=== PATIENT | female | born 1930 | race Caucasian/White ===

== ENCOUNTER 2017-01-23 11:59 | Inpatient (IN) | payer MEDICARE ==
[~2017-01-23] VITALS: Ht 165.1 cm; Wt 102.6 kg
[~2017-01-23 11:59] MED LIST: EPINEPHrine 0.1 MG/ML SYG ONE
[2017-01-23 12:10] VITALS: Ht 165.1 cm; Wt 102.6 kg
[2017-01-23] MEDS ORDERED: SOD CHLORIDE 0.9% 500 ML IV STA (12:19)
[2017-01-23] MEDS ORDERED: CEPH250C PO (12:28)
[2017-01-23] MEDS ORDERED: CITA20TA6 PO (12:29)
[2017-01-23] MEDS ORDERED: MELO7.5O PO (12:29)
[2017-01-23] MEDS ORDERED: DOCU250C58 PO (12:29)
[2017-01-23] MEDS ORDERED: HYDR-3670 PO (12:30)
[2017-01-23] MEDS ORDERED: RISP0.5T21 PO (12:31)
[2017-01-23] MEDS ORDERED: OXYB5TAB22 PO (12:32)
[2017-01-23] MEDS ORDERED: CLON-379 PO (12:33)
[2017-01-23] MEDS ORDERED: BENZ200C43 PO (12:33)
[2017-01-23] MEDS ORDERED: LORA0.5T PO (12:33)
[2017-01-23] MEDS ORDERED: ACET-2047 PO (12:34)
[2017-01-23] MEDS ORDERED: MUPI15CR9 TOP (12:35)
[2017-01-23] MEDS ORDERED: CIPR500T4 PO (12:35)
[2017-01-23 12:38] LABS: ADD SCAN DIFF NO
[2017-01-23 12:43] LABS: BASOPHILS % 0.4 % (0.0-2.0); EOSINOPHILS # 0.1 10^3/ul (0.0-0.5); EOSINOPHILS % 2.5 % (0.0-7.0); HEMATOCRIT 29.4 % (37.0-47.0); HEMOGLOBIN 9.2 g/dl (12.0-16.0); LYMPHOCYTES # 0.7 10^3/ul (0.8-2.9); LYMPHOCYTES % 24.6 % (15.0-51.0); MEAN CORPUSCULAR HEMOGLOBIN 26.4 pg (29.0-33.0); MEAN CORPUSCULAR HGB CONC 31.3 g/dl (32.0-37.0); MEAN CORPUSCULAR VOLUME 84.5 fl (82.0-101.0); MEAN PLATELET VOLUME 9.5 fl (7.4-10.4); MONOCYTE # 0.2 10^3/ul (0.3-0.9); MONOCYTES % 6.8 % (0.0-11.0); NEUTROPHIL # 1.8 10^3/ul (1.6-7.5); NEUTROPHILS % 65.3 % (39.0-77.0); PLATELET COUNT 123 10^3/UL (140-415); RED BLOOD COUNT 3.48 10^6/ul (4.20-5.40); RED CELL DISTRIBUTION WIDTH 14.5 % (11.5-14.5); WHITE BLOOD COUNT 2.8 10^3/ul (4.8-10.8)
[2017-01-23 12:50] LABS: ALBUMIN 3.4 g/dl (3.3-4.9); CHLORIDE 109 mmol/L (97-110)
[2017-01-23 12:51] LABS: POTASSIUM 4.7 mmol/L (3.5-5.1); SODIUM 145 mmol/L (135-144)
[2017-01-23 12:52] LABS: INR 1.04; PROTIME 13.6 Sec (12.2-14.2); PT RATIO 1.1
[2017-01-23 12:53] LABS: ALANINE AMINOTRANSFERASE 75 IU/L (13-69); ALBUMIN/GLOBULIN RATIO 1.21; ALKALINE PHOSPHATASE 103 IU/L (42-121); ANION GAP 15 (8-16); ASPARTATE AMINO TRANSFERASE 73 IU/L (15-46); BLOOD UREA NITROGEN 41 mg/dl (7-20); CARBON DIOXIDE 26 mmol/L (21-31); CREATININE 1.23 mg/dl (0.44-1.00); PARTIAL THROMBOPLASTIN TIME 38.8 Sec (25.0-35.0); TOTAL PROTEIN 6.2 g/dl (6.1-8.1)
[2017-01-23 12:54] LABS: CALCIUM 9.3 mg/dl (8.4-10.2); GLUCOSE 86 mg/dl (70-220)
[2017-01-23 13:13] LABS: TROPONIN-I < 0.012 ng/ml (0.00-0.12)
--- NOTE | 2017-01-23 13:20 | RADRPT ---
PROCEDURE: Chest 1 views. CLINICAL INDICATION: Shortness of breath TECHNIQUE: AP views of the chest were obtained. COMPARISON: None. FINDINGS: The heart is large. Right basilar infiltrates combined small pleural effusion are observed. Atelect asis is seen at the left lung base the osseous structures are osteopenic. Severe degenerative abreu ges are identified in the shoulders. Deformity of the right humeral head may be the sequelae of old trauma. Subtle calcifications are seen over the left axilla. IMPRESSION: Cardiomegaly . Right basilar infiltrates combined with small pleural effusion. Atelectasis at the left lung base. Subtle calcifications of the left axilla that may reflect material external to the patient or focal soft tissue calcifications. If further characterization is needed CT should be considered. RPTAT: AA .Rangel Titus MD, MD Date Time Electronically viewed and signed by .Rangel Titus MD, MD on 01/23/2017 13:20 .P/
[2017-01-23 14:14] LABS: ADD UMIC NO; URINE BILIRUBIN (Dip) NEGATIVE (NEGATIVE); URINE BLOOD (Dip) NEGATIVE (NEGATIVE); URINE COLOR LT. YELLOW (YELLOW); URINE GLUCOSE (Dip) NEGATIVE (NEGATIVE); URINE KETONES (Dip) NEGATIVE (NEGATIVE); URINE LEUKOCYTE ESTERASE (Dip) NEGATIVE (NEGATIVE); URINE NITRITE (Dip) NEGATIVE (NEGATIVE); URINE TOTAL PROTEIN (Dip) NEGATIVE (NEGATIVE); URINE UROBILINOGEN (Dip) 0.2 E.U./dL (0.1-1.0)
--- NOTE | 2017-01-23 15:09 | ERA ---
ER Documentation Chief Complaint Date/Time DATE: 01/23/17 TIME: 15:07 Chief Complaint BROUGHT IN VIA EMS DUE TO ALOC HPI Patient is an 86-year-old female brought from home due to being found with altered mental status by caregiver approximately 1 hour prior to arrival. Paramedics state that they do not know the last known well time. States that the patient was not verbal on transport to the ER. Appeared slightly tremulous. No fevers, no vomiting, no shortness of breath. On my history from the patient, the patient states that she feels slightly ill, states that she has nausea, and feels slightly shaky. Patient denies pain, denies shortness of breath, denies dizziness. ROS All systems reviewed and are negative except as per history of present illness. Medications Home Meds Reported Medications Mupirocin Calcium* (Mupirocin*) 2% - 15 Gram Cream..g., 1 APPLIC TOP TID Y for PRN, #1 TUB 01/23/17 Ciprofloxacin Hcl* (Ciprofloxacin Hcl*) 500 Mg Tablet, 500 MG PO BID for 7 Days , #14 TAB 01/23/17 Acetaminophen* (Acetaminophen*) 650 Mg Tablet, 650 MG PO Q4 Y for PAIN AND OR ELEVATED TEMP, #30 TAB 01/23/17 Benzonatate* (Benzonatate*) 200 Mg Capsule, 200 MG PO TID Y for COUGH, CAP 01/23/17 Lorazepam* (Lorazepam*) 0.5 Mg Tablet, 0.5 MG PO Q4 Y for ANXIETY, TAB 01/23/17 Clonidine Hcl* (Clonidine Hcl*) 0.1 Mg Tab, 0.1 MG PO Q6 Y for ELEVATED BLOOD PRESSURE, TAB 01/23/17 Oxybutynin Chloride* (Ditropan* XL) 5 Mg Tabsr, 5 MG PO QHS, TAB.SA 01/23/17 Risperidone* (Risperdal*) 0.5 Mg Tablet, 0.5 MG PO BID, TAB 01/23/17 Hydralazine Hcl* (Hydralazine Hcl*) 10 Mg Tablet, 10 MG PO Q8, #90 TAB 01/23/17 Meloxicam* (Meloxicam*) 7.5 Mg/5 Ml Oral.susp, 15 MG PO DAILY, #300 ML 01/23/17 Docusate Sodium* (Colace*) 250 Mg Capsule, 250 MG PO DAILY, #30 CAP 01/23/17 Citalopram Hydrobromide* (Citalopram Hydrobromide*) 20 Mg Tablet, 20 MG PO DAILY , #30 TAB 01/23/17 Cephalexin* (Cephalexin*) 250 Mg Capsule, 250 MG PO DAILY, #21 CAP 01/23/17 Allergies Allergies: Coded Allergies: No Known Allergy (Unverified , 01/23/17) PMhx/Soc Past medical history: Unable to obtain, medications suggest depression, hypertension Past surgical history: Unable to obtain Social history: Per paramedics patient lives at home with caregiver History of Surgery: Yes (unable to get info) Hx Cardiac Disorders: Yes (hypertension) Hx Alcohol Use: No Hx Substance Use: No Hx Tobacco Use: No Smoking Status: Never smoker FmHx Unable to obtain Physical Exam Vitals Vital Signs Date Time Temp Pulse Resp B/P Pulse Ox O2 Delivery O2 Flow Rate FiO2 01/23/17 20:10 98.4 56 16 113/74 100 Mechanical Ventilator 01/23/17 19:50 98.4 56 23 112/99 100 Mechanical Ventilator 01/23/17 19:30 98.4 62 17 114/69 100 Mechanical Ventilator 01/23/17 19:14 65 16 99/51 100 Mechanical Ventilator 01/23/17 18:14 55 105/70 01/23/17 17:48 62 90/58 01/23/17 17:28 6 18 99/65 100 Mechanical Ventilator 01/23/17 17:23 93 20 96 100 01/23/17 16:59 70 15 70/34 100 Mechanical Ventilator 01/23/17 15:58 73 75/44 01/23/17 15:51 89 20 97 100 01/23/17 15:35 102 57/40 01/23/17 14:48 48 14 130/104 100 Room Air 01/23/17 12:10 98.4 48 18 132/64 100 Physical Exam Const: Alert, interactive, not oriented to date time or place Head: Atraumatic Eyes: Slightly pale conjunctiva ENT: Normal External Ears, Nose and Mouth. Neck: Full range of motion. No JVD. No meningismus. Resp: Clear to auscultation bilaterally Cardio: Irregularly irregular rhythm, bradycardia, no murmurs Abd: Soft, non tender, non distended. Normal bowel sounds Rectal: Solid stool, light brown, no blood Skin: No petechiae or rashes Back: No midline or flank tenderness Ext: No cyanosis, 1+ edema Neur: Awake and alert Psych: Normal Mood and Affect, slightly lethargic Result Diagram: 01/23/17 1225 01/23/17 1225 Results 24 hrs Laboratory Tests Test 01/23/17 12:25 01/23/17 13:58 01/23/17 15:49 01/23/17 17:10 Activated Partial Thromboplast Time 38.8Sec Alanine Aminotransferase (ALT/SGPT) 75IU/L Albumin 3.4g/dl Albumin/Globulin Ratio 1.21 Alkaline Phosphatase 103IU/L Anion Gap 15 Aspartate Amino Transf (AST/SGOT) 73IU/L Basophils # 0.010^3/ul Basophils % 0.4% Blood Urea Nitrogen 41mg/dl Calcium Level 9.3mg/dl Carbon Dioxide Level 26mmol/L Chloride Level 109mmol/L Creatinine 1.23mg/dl Direct Bilirubin 0.00mg/dl Eosinophils # 0.110^3/ul Eosinophils % 2.5% Globulin 2.80g/dl Glucose Level 86mg/dl Hematocrit 29.4% Hemoglobin 9.2g/dl INR International Normalized Ratio 1.04 Indirect Bilirubin 0.0mg/dl Lymphocytes # 0.710^3/ul Lymphocytes % 24.6% Mean Corpuscular Hemoglobin 26.4pg Mean Corpuscular Hemoglobin Concent 31.3g/dl Mean Corpuscular Volume 84.5fl Mean Platelet Volume 9.5fl Monocytes # 0.210^3/ul Monocytes % 6.8% Neutrophils # 1.810^3/ul Neutrophils % 65.3% Nucleated Red Blood Cells # 0.010^3/ul Nucleated Red Blood Cells % 0.0/100WBC Platelet Count 16237^3/UL Potassium Level 4.7mmol/L Prothrombin Time 13.6Sec Prothrombin Time Ratio 1.1 Red Blood Count 3.4810^6/ul Red Cell Distribution Width 14.5% Sodium Level 145mmol/L Total Bilirubin 0.0mg/dl Total Protein 6.2g/dl Troponin I < 0.012ng/ml White Blood Count 2.810^3/ul Urine Bilirubin NEGATIVE Urine Clarity CLEAR Urine Color LT. YELLOW Urine Glucose NEGATIVE% Urine Hemoglobin NEGATIVE Urine Ketones NEGATIVE Urine Leukocyte Esterase NEGATIVE Urine Nitrite NEGATIVE Urine Specific [place] >=1.030 Urine Total Protein NEGATIVE Urine Urobilinogen 0.2 E.U./dL Urine pH 5.0 Arterial Blood HCO3 22.2mmol/L Arterial Blood Base Excess -4.6mmol/L Arterial Blood Oxygen Saturation 97.8mmHG Dominick Test ACCEPTAB Arterial Blood Gas Puncture Site Right Radial Arterial Blood Carboxyhemoglobin 0.3% Arterial Blood Date Drawn 01/23/2017 4:12:24 PM Arterial Blood Methemoglobin 0% Arterial Blood pCO2 (Temp correct) 49.0mmhg Arterial Blood pH (Temp corrected) 7.274 Arterial Blood pO2 (Temp corrected) 138.5mmHG Blood Gas A-a O2 Differential 525.5mmHg Blood Gas Actual Respiration Rate 20 Blood Gas Critical Value Read Back DOV. HERMILO Blood Gas Low PEEP Setting 0cmH2O Blood Gas Modality VENT - AC Blood Gas Notified Time 01/23/2017 4:23:49 PM Blood Gas Notified Whom RT Blood Gas Respiration Rate 16.0 Blood Gas Specimen Source Blood arterial Blood Gas Temperature 37.0C Blood Gas Tidal Volume 450.0mL FiO2 100.0% Oxyhemoglobin Percent 97.5% Total Hemoglobin 9.7g/dl Lactic Acid Level 2.4mmol/L Thyroid Stimulating Hormone (TSH) 8.790MIU/L Current Medications Medications (Trade) Dose Ordered Sig/Kvng Route PRN Reason Start Time Stop Time Status Last Admin Dose Admin Sodium Chloride (NS) 500 ml @ 500 mls/hr Q1H STAT IV 01/23/17 12:19 01/23/17 13:18 DC 01/23/17 13:25 Fentanyl 100 mcg 100 mcg ONCE ONCE IV 01/23/17 15:30 01/23/17 15:31 DC 01/23/17 15:19 Propofol (Diprivan) 100 ml @ 0 mls/hr TITRATE ONCE IV 01/23/17 15:30 01/23/17 15:31 DC 01/23/17 15:32 Magnesium Sulfate 2 gm 2 gm ONCE ONCE IM 01/23/17 15:30 01/23/17 15:35 DC Magnesium Sulfate 2 gm/Sodium Chloride 104 ml @ 27 mls/hr ONCE ONCE IV 01/23/17 16:00 01/23/17 19:51 DC 01/23/17 16:19 Midazolam HCl 50 ml @ 1 mls/hr TITRATE IV 01/23/17 16:30 01/23/17 16:18 Sodium Chloride 1,000 ml @ 1,000 mls/hr Q1H ONCE IV 01/23/17 16:30 01/23/17 17:29 DC 01/23/17 17:03 Ceftriaxone Sodium 2000 mg/ Sodium Chloride 50 ml @ 100 mls/hr ONCE ONCE IVPB 01/23/17 16:30 01/23/17 16:59 DC 01/23/17 17:32 Azithromycin 500 mg/Sodium Chloride 250 ml @ 250 mls/hr ONCE IVPB 01/23/17 16:30 01/23/17 17:29 DC 01/23/17 18:54 Norepinephrine 250 ml @ 1.875 mls/ hr TITRATE IV 01/23/17 17:30 Sodium Chloride (NS) 1,000 ml @ 1,000 mls/hr Q1H ONCE IV 01/23/17 17:30 01/23/17 18:29 DC 01/23/17 18:07 Rocuronium [place] (Zemuron) 100 mg ONCE ONCE IV 01/23/17 18:30 01/23/17 18:39 DC Lorazepam (Ativan) 2 mg ONCE ONCE IV 01/23/17 19:00 01/23/17 19:01 DC 01/23/17 18:54 Procedures/MDM EKG: Time 1240, rate 59, atrial fibrillation with bradycardia, prolonged QT, nonspecific ST abnormality, artifact limits interpretation EKG: Time 1508, rate 115, atrial fibrillation, prolonged QTC, anterior Q waves, nonspecific ST-T wave abnormality EKG: Time 1629, rate 62, atrial fibrillation, normal axis and intervals, no ischemic ST-T wave changes. ED course: Patient suddenly became unresponsive, and was asystolic on the monitor. This event was witnessed, and CPR was initiated immediately. Respirations were supported with bag valve mask ventilation, and epinephrine was administered. The patient was intubated by direct laryngoscopy with a MAC 4 blade. ROSC was obtained within 3 minutes of cardiac arrest. Postarrest EKG did not show STEMI, and blood pressure was normal. Procedure: Endotracheal intubation: Patient intubated with a 7.5 ET tube using a MAC 4 blade under direct laryngoscopy, with good visualization of the vocal cords. No sedation or paralytic required due to patient in cardiac arrest. ET tube secured at 23 cm at the lip, good color change capnography, breath sounds auscultated bilaterally, confirmatory chest x-ray ordered. Pulse oximetry normal following intubation. Vent settings tidal volume 450, rate 16, FiO2 100. Blood gas shows CO2 of 49 to tidal volume increased to 500, will titrate down O2 as tolerated. Procedure: Central line placement: Indication hypotension. Patient positioned in Trendelenburg. Unable to consent due to patient's medical condition and no family available for procedure is emergent and necessary to prevent severe outcome. Right side of neck prepped with chlorhexidine. 3 cc of 1% lidocaine injected in local block for anesthesia. Sterile drapes placed. Sterile gown Mask and gloves donned. Under ultrasound guidance with a sterile probe cover, the right IJ was visualized and cannulated with an introducer needle. A wire was placed and visualized on ultrasound in the right internal jugular vein. A ronald in the skin was made with a scalpel, and a dilator was passed over the wire , using Seldinger technique a triple lumen central venous catheter was placed. Blood was aspirated from all 3 ports and they were flushed with sterile saline. A Biopatch was placed and central line was sutured in place using a spacer and secured with an occlusive dressing. CT head: No acute intracranial abnormality. Chest x-ray: Right basilar infiltrate with pleural effusion, see EMR for complete interpretation Chest x-ray: Pulmonary edema. Endotracheal tube and right IJ central line in good position, see EMR for complete interpretation. MDM: Patient found to be altered by caregiver. On arrival in ER patient is alert has no focal neuro deficits. Workup shows right lower lobe infiltrate on chest x-ray but patient has no signs of respiratory distress and no fever. Patient given IV fluids and antibiotics, and culture sent. EKG shows slow atrial fibrillation, no evidence for hyperkalemia, no history of patient being on digoxin. Patient is not hypothermic, has slightly elevated TSH which likely does not account for her symptoms. Patient has tremor of unknown duration. While in the ER patient had sudden unresponsiveness and found to be pulseless and asystolic on the monitor. No documentation or history of advanced directive was obtainable prior to this event and CPR was initiated. Successful ROSC was achieved and patient was intubated for airway protection. Hypothermia protocol was not undertaken due to patient regaining some purposeful movement after ROSC, and very brief period of witnessed arrest unlikely to result in anoxic brain injury. After resuscitation the patient had hypotension, so a central line was placed for vasopressor administration. A CT scan of the brain was unremarkable. Lactic acid was marginally elevated. Additional fluids were given; however, given findings on x-ray suggestive of CHF will give fluids judiciously. I had extensive discussion with the patient's son, Rosas Rosas, who told me that the patient has a DNR/DNI advanced directive, had recently been admitted to [facility] for altered mental status and hyperkalemia, which was attributed to an unknown antibiotic. He states that the patient's condition initially appeared severe and there is discussion of hospice, but ultimately the patient improved and hospice was not pursued. He states that the patient does not have history of CHF or atrial fibrillation. Contact number for son is [phone]. Case discussed with Dr. Sexton will admit patient to ICU for further workup and treatment. Patient is DNR, son plans to come in tomorrow to clarify goals of care. Critical Care: Time: 40 minutes exlcuding all billable procedures. Treatments/Evaluations: Close monitoring and treatment of unstable vital signs, cardiorespiratory, and neurologic status, while maintaining tight balance of fluid, respiratory, and cardiac interventions. Departure Diagnosis: Primary Impression: Cardiopulmonary arrest Additional Impressions: Pneumonia Altered mental status Atrial fibrillation Condition: Serious RUBIA AKHTAR Jan 23, 2017 15:09
[2017-01-23] MEDS ORDERED: FENTAnyl 50 MCG/ML VIAL IV ONE (15:30)
[2017-01-23] MEDS ORDERED: PROPOFOL 100 ML IV ONE (15:30)
[2017-01-23] MEDS ORDERED: MAGNESIUM SULFATE (GM) 50% 2 ML INJ IM ONE (15:30)
[2017-01-23] MEDS ORDERED: MAGNESIUM SULFATE IV ONE (16:00)
[2017-01-23] MEDS ORDERED: SOD CHLORIDE 0.9% IV ONE (16:00)
[2017-01-23] MEDS: MIDAZOLAM (DRIP) 50 mg/50 mL 50 ML IV SCH (16:18)
[2017-01-23 16:24] LABS: AADO2 Arterial 525.5 mmHg (7.0-24.0); Allen Test ACCEPTAB; Arterial Base Excess -4.6 mmol/L (-3.0-3); Arterial COHb 0.3 % (0.0-3.0); Arterial Fraction of Oxyhgb 97.5 % (93.0-99.0); Arterial HCO3 22.2 mmol/L (22.0-26.0); Arterial MetHb 0 % (0.0-1.5); Arterial Total Hemglobin 9.7 g/dl (12.0-18.0); Blood Gas Low PEEP Setting 0 cmH2O; MODE VENT - AC
[2017-01-23] MEDS ORDERED: AZITHROMYCIN 500 MG in SOD CHLORIDE 0.9% 250 ML IVPB SCH (16:30)
[2017-01-23] MEDS ORDERED: SOD CHLORIDE 0.9% 1,000 ML IV ONE ×2 (16:30→17:30)
[2017-01-23] MEDS ORDERED: CEFTRIAXONE 2,000 MG in SOD CHLORIDE 0.9% 50 ML IVPB ONE (16:30)
[2017-01-23] MEDS ORDERED: NORepinephrine 8MG/250 ML (PMX 250 ML IV SCH (17:30)
--- NOTE | 2017-01-23 17:47 | RADRPT ---
PROCEDURE: XR Chest. CLINICAL INDICATION: Check line placement. TECHNIQUE: Single frontal view. COMPARISON: 01/23/2017. 1243 hours. FINDINGS: There is a new right internal jugular vein catheter with the tip overlying the expected region of th e mid superior vena cava. An endotracheal tube has also been inserted in satisfactory position with the tip 3.7 cm above the myra. The heart is enlarged. There is bilateral interstitial disease consistent with pulmonary edema. Th ere is bibasilar atelectasis, worse than seen previously. There are small bilateral pleural effusions. There is no pneumothorax. IMPRESSION: 1. Right IJ catheter and endotracheal tube in satisfactory position. 2. Worse appearance of the lungs. 3. Small bilateral pleural effusions. 4. No pneumothorax. RPTAT: QQ .Andrey Meehan MD, MD Date Time Electronically viewed and signed by .Andrey Meehan MD, MD on 01/23/2017 17:47 .R/
[2017-01-23] MEDS ORDERED: ROCURONIUM 50 MG INJ IV ONE (18:30)
[2017-01-23] MEDS ORDERED: LORAZEPAM 2 MG INJ IV ONE (19:00)
--- NOTE | 2017-01-23 20:01 | RADRPT ---
PROCEDURE: CT head, without contrast. CLINICAL INDICATION: Altered mental status. TECHNIQUE: Noncontrast CT examination of the head, with axial, sagittal and coronal reformatted im ages. Automated dose exposure control was employed. CTDI: 39.64 mGy and DLP: 634.23 mGy-cm. COMPARISON: None. FINDINGS: Chronic changes of atrophy and small vessel disease of white matter Note acute hemorrhage. Subarachnoid spaces are substantially preserved and symmetric. Ventricles are unremarkable. No mass effect. Monzon-white matter distinction is preserved without evident decreased attenuation t o suggest acute or recent infarct. Sinuses and osseous structures are unremarkable. IMPRESSION: No acute process in the head. RPTAT: [facility] Physician Jerrica Date Time Electronically viewed and signed by Physician Jerrica on 01/23/2017 20:01 CAROLYN/
--- NOTE | 2017-01-23 21:24 | HP ---
Date/Time of Note Date/Time of Note DATE: 01/23/17 TIME: 21:24 Assessment/Plan VTE Prophylaxis VTE Prophylaxis Intervention: other (Enoxeparin) Lines/Catheters Urinary Cath still in place: No Assessment/Plan Assessment/Plan 1) Cardiopulmonary arrest - Admit to Intensive Care Unit, Intubated, Sedated - Consult: Dr. Nickerson (notified) - Patient is DNR/DNI. Her son will come in tomorrow to discuss next steps, including the possibility of withdrawing care. 2) Pneumonia - Antibiotics 3) Altered mental status - Underlying dementia per history - Maintain oxygenation. - AM Labs 4) Mild Dehydration - IV hydration after 2L NS given in ER - Monitor Is and Os 5) Atrial fibrillation - rate controlled HPI/ROS Admit Date/Time Admit Date/Time Hx of Present Illness Chief Complaint BROUGHT IN VIA EMS DUE TO ALOC Patient is intubated and sedated, so History as per ER physician: Patient is an 86-year-old female brought from home due to being found with altered mental status by caregiver approximately 1 hour prior to arrival. Paramedics state that they do not know the last known well time. States that the patient was not verbal on transport to the ER. Appeared slightly tremulous. No fevers, no vomiting, no shortness of breath. On my history from the patient, the patient states that she feels slightly ill, states that she has nausea, and feels slightly shaky. Patient denies pain, denies shortness of breath, denies dizziness. ER Course: Patient found to be altered by caregiver. On arrival in ER patient is alert has no focal neuro deficits. Workup shows right lower lobe infiltrate on chest x-ray but patient has no signs of respiratory distress and no fever. Patient given IV fluids and antibiotics, and culture sent. EKG shows slow atrial fibrillation, no evidence for hyperkalemia, no history of patient being on digoxin. Patient is not hypothermic, has slightly elevated TSH which likely does not account for her symptoms. Patient has tremor of unknown duration. While in the ER patient had sudden unresponsiveness and found to be pulseless and asystolic on the monitor. No documentation or history of advanced directive was obtainable prior to this event and CPR was initiated. Successful ROSC was achieved and patient was intubated for airway protection. Hypothermia protocol was not undertaken due to patient regaining some purposeful movement after ROSC, and very brief period of witnessed arrest unlikely to result in anoxic brain injury. After resuscitation the patient had hypotension, so a central line was placed for vasopressor administration. A CT scan of the brain was unremarkable. Lactic acid was marginally elevated. Additional fluids were given; however, given findings on x-ray suggestive of CHF will give fluids judiciously. I had extensive discussion with the patient's son, Rosas Rosas, who told me that the patient has a DNR/DNI advanced directive, had recently been admitted to [facility] for altered mental status and hyperkalemia, which was attributed to an unknown antibiotic. He states that the patient's condition initially appeared severe and there is discussion of hospice, but ultimately the patient improved and hospice was not pursued. He states that the patient does not have history of CHF or atrial fibrillation. Contact number for son is [phone]. Case discussed with Dr. Sexton will admit patient to ICU for further workup and treatment. Patient is DNR, son plans to come in tomorrow to clarify goals of care. PMH/Family/Social Past Medical History Unable to obtain, medications suggest depression, hypertension Past Surgical History Past surgical history: Unable to obtain Family History Significant Family History: other (Unable to obtain) Social History Social history: Per paramedics patient lives at home with caregiver Smoking Status: Never smoker Exam/Review of Systems Vital Signs Vitals Vital Signs Date Time Temp Pulse Resp B/P Pulse Ox O2 Delivery O2 Flow Rate FiO2 01/23/17 20:30 98.0 51 16 121/50 100 Mechanical Ventilator 01/23/17 17:23 100 Exam Exam Const: Intubated, sedated Head: Atraumatic Eyes: Slightly pale conjunctiva ENT: Normal External Ears, Nose Neck: No lymphadenopathy Resp: Clear to auscultation bilaterally Cardio: Irregularly irregular rhythm, bradycardia, no murmurs Abd: Soft, non tender, non distended. Normal bowel sounds Rectal: Solid stool, light brown, no blood (per ER Physician) Skin: Cool Extremities. Open calluses medial aspects of bilateral MT-P Joints. Multiple thickened/discolored toe nails. Thin skin. No petechiae or rashes appreciated.. Back: Unable to assess Ext: No cyanosis, 1+ edema to mid legs bilaterally Neur: Sedated and Intubated Psych: Unable to assess Labs Result Diagram: 01/23/17 1225 01/23/17 1225 Medications Medications Current Medications Midazolam HCl 50 ml @ 1 mls/hr TITRATE IV Last administered on 01/23/17t 16:18; Admin Dose 3 MLS/HR; Start 01/23/17 at 16:30 Norepinephrine (Levophed) 250 ml @ 1.875 mls/ hr TITRATE IV ; Start 01/23/17 at 17:30 Reported Medications Mupirocin Calcium* (Mupirocin*) 2% - 15 Gram Cream..g., 1 APPLIC TOP TID Y for PRN, #1 TUB 01/23/17 Ciprofloxacin Hcl* (Ciprofloxacin Hcl*) 500 Mg Tablet, 500 MG PO BID for 7 Days , #14 TAB 01/23/17 Acetaminophen* (Acetaminophen*) 650 Mg Tablet, 650 MG PO Q4 Y for PAIN AND OR ELEVATED TEMP, #30 TAB 01/23/17 Benzonatate* (Benzonatate*) 200 Mg Capsule, 200 MG PO TID Y for COUGH, CAP 01/23/17 Lorazepam* (Lorazepam*) 0.5 Mg Tablet, 0.5 MG PO Q4 Y for ANXIETY, TAB 01/23/17 Clonidine Hcl* (Clonidine Hcl*) 0.1 Mg Tab, 0.1 MG PO Q6 Y for ELEVATED BLOOD PRESSURE, TAB 01/23/17 Oxybutynin Chloride* (Ditropan* XL) 5 Mg Tabsr, 5 MG PO QHS, TAB.SA 01/23/17 Risperidone* (Risperdal*) 0.5 Mg Tablet, 0.5 MG PO BID, TAB 01/23/17 Hydralazine Hcl* (Hydralazine Hcl*) 10 Mg Tablet, 10 MG PO Q8, #90 TAB 01/23/17 Meloxicam* (Meloxicam*) 7.5 Mg/5 Ml Oral.susp, 15 MG PO DAILY, #300 ML 01/23/17 Docusate Sodium* (Colace*) 250 Mg Capsule, 250 MG PO DAILY, #30 CAP 01/23/17 Citalopram Hydrobromide* (Citalopram Hydrobromide*) 20 Mg Tablet, 20 MG PO DAILY , #30 TAB 01/23/17 Cephalexin* (Cephalexin*) 250 Mg Capsule, 250 MG PO DAILY, #21 CAP 01/23/17 Procedures Procedures ADDITIONAL LABS: Laboratory Tests Test 01/23/17 12:25 01/23/17 13:58 01/23/17 15:49 01/23/17 17:10 Activated Partial Thromboplast Time 38.8Sec Alanine Aminotransferase (ALT/SGPT) 75IU/L Albumin 3.4g/dl Albumin/Globulin Ratio 1.21 Alkaline Phosphatase 103IU/L Anion Gap 15 Aspartate Amino Transf (AST/SGOT) 73IU/L Basophils # 0.010^3/ul Basophils % 0.4% Blood Urea Nitrogen 41mg/dl Calcium Level 9.3mg/dl Carbon Dioxide Level 26mmol/L Chloride Level 109mmol/L Creatinine 1.23mg/dl Direct Bilirubin 0.00mg/dl Eosinophils # 0.110^3/ul Eosinophils % 2.5% Globulin 2.80g/dl Glucose Level 86mg/dl Hematocrit 29.4% Hemoglobin 9.2g/dl INR International Normalized Ratio 1.04 Indirect Bilirubin 0.0mg/dl Lymphocytes # 0.710^3/ul Lymphocytes % 24.6% Mean Corpuscular Hemoglobin 26.4pg Mean Corpuscular Hemoglobin Concent 31.3g/dl Mean Corpuscular Volume 84.5fl Mean Platelet Volume 9.5fl Monocytes # 0.210^3/ul Monocytes % 6.8% Neutrophils # 1.810^3/ul Neutrophils % 65.3% Nucleated Red Blood Cells # 0.010^3/ul Nucleated Red Blood Cells % 0.0/100WBC Platelet Count 62320^3/UL Potassium Level 4.7mmol/L Prothrombin Time 13.6Sec Prothrombin Time Ratio 1.1 Red Blood Count 3.4810^6/ul Red Cell Distribution Width 14.5% Sodium Level 145mmol/L Total Bilirubin 0.0mg/dl Total Protein 6.2g/dl Troponin I < 0.012ng/ml White Blood Count 2.810^3/ul Urine Bilirubin NEGATIVE Urine Clarity CLEAR Urine Color LT. YELLOW Urine Glucose NEGATIVE% Urine Hemoglobin NEGATIVE Urine Ketones NEGATIVE Urine Leukocyte Esterase NEGATIVE Urine Nitrite NEGATIVE Urine Specific [place] >=1.030 Urine Total Protein NEGATIVE Urine Urobilinogen 0.2 E.U./dL Urine pH 5.0 Arterial Blood HCO3 22.2mmol/L Arterial Blood Base Excess -4.6mmol/L Arterial Blood Oxygen Saturation 97.8mmHG Dominick Test ACCEPTAB Arterial Blood Gas Puncture Site Right Radial Arterial Blood Carboxyhemoglobin 0.3% Arterial Blood Date Drawn 01/23/2017 4:12:24 PM Arterial Blood Methemoglobin 0% Arterial Blood pCO2 (Temp correct) 49.0mmhg Arterial Blood pH (Temp corrected) 7.274 Arterial Blood pO2 (Temp corrected) 138.5mmHG Blood Gas A-a O2 Differential 525.5mmHg Blood Gas Actual Respiration Rate 20 Blood Gas Critical Value Read Back WR. AKHTAR Blood Gas Low PEEP Setting 0cmH2O Blood Gas Modality VENT - AC Blood Gas Notified Time 01/23/2017 4:23:49 PM Blood Gas Notified Whom RT Blood Gas Respiration Rate 16.0 Blood Gas Specimen Source Blood arterial Blood Gas Temperature 37.0C Blood Gas Tidal Volume 450.0mL FiO2 100.0% Oxyhemoglobin Percent 97.5% Total Hemoglobin 9.7g/dl Lactic Acid Level 2.4mmol/L Thyroid Stimulating Hormone (TSH) 8.790MIU/L RADIOLOGY: PROCEDURE: XR Chest. CLINICAL INDICATION: Check line placement. TECHNIQUE: Single frontal view. COMPARISON: 01/23/2017. 1243 hours. FINDINGS: There is a new right internal jugular vein catheter with the tip overlying the expected region of the mid superior vena cava. An endotracheal tube has also been inserted in satisfactory position with the tip 3.7 cm above the myra. The heart is enlarged. There is bilateral interstitial disease consistent with pulmonary edema. There is bibasilar atelectasis, worse than seen previously. There are small bilateral pleural effusions. There is no pneumothorax. IMPRESSION: 1. Right IJ catheter and endotracheal tube in satisfactory position. 2. Worse appearance of the lungs. 3. Small bilateral pleural effusions. 4. No pneumothorax. PROCEDURE: CT head, without contrast. CLINICAL INDICATION: Altered mental status. TECHNIQUE: Noncontrast CT examination of the head, with axial, sagittal and coronal reformatted images. Automated dose exposure control was employed. CTDI: 39.64 mGy and DLP: 634.23 mGy-cm. COMPARISON: None. FINDINGS: Chronic changes of atrophy and small vessel disease of white matter Note acute hemorrhage. Subarachnoid spaces are substantially preserved and symmetric. Ventricles are unremarkable. No mass effect. Monzon-white matter distinction is preserved without evident decreased attenuation to suggest acute or recent infarct. Sinuses and osseous structures are unremarkable. IMPRESSION: No acute process in the head. PROCEDURE: Chest 1 views. CLINICAL INDICATION: Shortness of breath TECHNIQUE: AP views of the chest were obtained. COMPARISON: None. FINDINGS: The heart is large. Right basilar infiltrates combined small pleural effusion are observed. Atelectasis is seen at the left lung base the osseous structures are osteopenic. Severe degenerative changes are identified in the shoulders. Deformity of the right humeral head may be the sequelae of old trauma. Subtle calcifications are seen over the left axilla. IMPRESSION: Cardiomegaly . Right basilar infiltrates combined with small pleural effusion. Atelectasis at the left lung base. Subtle calcifications of the left axilla that may reflect material external to the patient or focal soft tissue calcifications. If further characterization is needed CT should be considered. ADIN SEXTON DO Jan 23, 2017 21:24 Arterial Blood pCO2 (Temp correct) 49.0mmhg Arterial Blood pH (Temp corrected) 7.274 Arterial Blood pO2 (Temp corrected) 138.5mmHG Blood Gas A-a O2 Differential 525.5mmHg Blood Gas Actual Respiration Rate 20 Blood Gas Critical Value Read Back WR. AKHTAR Blood Gas Low PEEP Setting 0cmH2O Blood Gas Modality VENT - AC Blood Gas Notified Time 01/23/2017 4:23:49 PM Blood Gas Notified Whom RT Blood Gas Respiration Rate 16.0 Blood Gas Specimen Source Blood arterial Blood Gas Temperature 37.0C Blood Gas Tidal Volume 450.0mL FiO2 100.0% Oxyhemoglobin Percent 97.5% Total Hemoglobin 9.7g/dl Lactic Acid Level 2.4mmol/L Thyroid Stimulating Hormone (TSH) 8.790MIU/L RADIOLOGY: PROCEDURE: Chest 1 views. CLINICAL INDICATION: Shortness of breath TECHNIQUE: AP views of the chest were obtained. COMPARISON: None. FINDINGS: The heart is large. Right basilar infiltrates combined small pleural effusion are observed. Atelectasis is seen at the left lung base the osseous structures are osteopenic. Severe degenerative changes are identified in the shoulders. Deformity of the right humeral head may be the sequelae of old trauma. Subtle calcifications are seen over the left axilla. IMPRESSION: Cardiomegaly . Right basilar infiltrates combined with small pleural effusion. Atelectasis at the left lung base. Subtle calcifications of the left axilla that may reflect material external to the patient or focal soft tissue calcifications. If further characterization is needed CT should be considered. ADIN SEXTON DO Jan 23, 2017 21:24 Docusate Sodium* (Colace*) 250 Mg Capsule, 250 MG PO DAILY, #30 CAP 01/23/17 Citalopram Hydrobromide* (Citalopram Hydrobromide*) 20 Mg Tablet, 20 MG PO DAILY , #30 TAB 01/23/17 Cephalexin* (Cephalexin*) 250 Mg Capsule, 250 MG PO DAILY, #21 CAP 01/23/17 ADIN SEXTON DO Jan 23, 2017 21:24
[2017-01-23] MEDS ORDERED: LABETALOL HCL 20MG INJ IV PRN (22:00)
[2017-01-23] MEDS: SOD CHLORIDE 0.9% 1,000 ML IV SCH (23:45)
[2017-01-24] MEDS: ENOXAPARIN 100 MG/ML SYG SC SCH ×2 (00:29→23:19)
[2017-01-24 05:42] LABS: ADD SCAN DIFF NO
[2017-01-24 05:43] LABS: BASOPHILS % 0.5 % (0.0-2.0); EOSINOPHILS % 0.5 % (0.0-7.0); HEMATOCRIT 24.3 % (37.0-47.0); HEMOGLOBIN 7.6 g/dl (12.0-16.0); LYMPHOCYTES # 0.6 10^3/ul (0.8-2.9); LYMPHOCYTES % 15.2 % (15.0-51.0); MEAN CORPUSCULAR HGB CONC 31.3 g/dl (32.0-37.0); MEAN CORPUSCULAR VOLUME 83.2 fl (82.0-101.0); MEAN PLATELET VOLUME 9.6 fl (7.4-10.4); MONOCYTE # 0.2 10^3/ul (0.3-0.9); MONOCYTES % 4.2 % (0.0-11.0); NEUTROPHIL # 3.2 10^3/ul (1.6-7.5); NEUTROPHILS % 79.4 % (39.0-77.0); PLATELET COUNT 107 10^3/UL (140-415); RED BLOOD COUNT 2.92 10^6/ul (4.20-5.40); RED CELL DISTRIBUTION WIDTH 14.3 % (11.5-14.5)
[2017-01-24 05:52] LABS: ALBUMIN 2.6 g/dl (3.3-4.9)
[2017-01-24 05:53] LABS: POTASSIUM 4.8 mmol/L (3.5-5.1)
[2017-01-24 05:55] LABS: ALBUMIN/GLOBULIN RATIO 1.04; CREATININE 1.05 mg/dl (0.44-1.00); TOTAL PROTEIN 5.1 g/dl (6.1-8.1)
[2017-01-24 05:56] LABS: CALCIUM 8.1 mg/dl (8.4-10.2)
[2017-01-24] MEDS: MIDAZOLAM (DRIP) 50 mg/50 mL 50 ML IV SCH ×2 (06:00→23:52)
[2017-01-24] MEDS: SOD CHLORIDE 0.9% 1,000 ML IV SCH (12:00)
[2017-01-24] MEDS ORDERED: SOD CHLORIDE 0.9% 1,000 ML IV STA (13:52)
--- NOTE | 2017-01-24 14:33 | CONS ---
Date/Time of Note Date/Time of Note DATE: 01/24/17 TIME: 14:28 Assessment/Plan Assessment/Plan Additional Assessment/Plan Chest x-ray was reviewed pre-and post intubation which is showing pulmonary edema endotracheal tube is at an adequate level. Next Current ventilator settings are assist control of 16, tidal volume 500, PEEP of 0, 100% FiO2. Assessment recommendations; 1. Patient admitted with altered mental status and had a cardiac arrest event requiring along CPR. 2. At this point difficult to ascertain degree of anoxic brain injury. 3. Hypotension. 4. Mild dehydration. 5. DNR/DNI status. Continue current supportive care. Wean down FiO2 to keep O2 sat around 90-94% the patient's son apparently will opt for terminal expiration. Prognosis is poor. Consultation Date/Type/Reason Admit Date/Time Date of Consultation: Jan 24, 2017 Type of Consultation: Pulmonary/critical care Reason for Consultation Pulmonary consultation obtained for evaluation of respiratory failure, patient status post cardiac arrest. History presenting any; patient is a 86-year-old white lady who was brought into the emergency room and sent in from [facility] with complaints of altered mental status. Upon evaluation here the patient had cardiac arrest event and underwent prolonged CPR with revival of vital signs. She was intubated by the ER physician and put on mechanical ventilation. However the patient's son came along after that and told the ER physician that the patient was a DNR/DNI. By the time I saw the patient the patient is orally intubated, unresponsive. Also getting hypotensive. History was obtained from medical records. Past medical history; 1. History of hypertension. 2. History of arthritis. It is unclear whether patient has any underlying coronary artery disease or any other major medical illnesses. Medications; were reviewed. Allergies; none. Social history, occupational history, family history is unavailable patient apparently has a son. Review of systems; unable to be obtained. General exam; elderly lady, orally intubated, unresponsive. Social History Smoking Status: Never smoker Exam/Review of Systems Vital Signs Vitals Vital Signs Date Time Temp Pulse Resp B/P Pulse Ox O2 Delivery O2 Flow Rate FiO2 01/24/17 09:50 94.8 01/24/17 09:45 42 19 90/28 100 Mechanical Ventilator 01/24/17 07:40 100 Exam HEENT examination; supple neck, JVD difficult to see because of short neck. Patient has bilateral intraocular lens implants. She is edentulous. No neck masses, no thyromegaly, no neck bruits. Chest examination; diminished but clear breath sounds bilaterally. S1-S2 audible, no murmurs. Regular rhythm. Abdomen examination; soft, nondistended. No organomegaly. Bowel sounds are absent to sluggish. Extremity examination; no peripheral edema. Next POWER CHECKER examination; patient is completely unresponsive. Results Result Diagram: 01/24/17 0501/24/17 0521 Results 24 hrs Laboratory Tests Test 01/23/17 15:49 01/23/17 17:10 01/23/17 21:05 01/23/17 23:28 Arterial Blood HCO3 22.2 Arterial Blood Base Excess -4.6 L Arterial Blood Oxygen Saturation 97.8 Dominick Test ACCEPTAB Arterial Blood Gas Puncture Site Right Radial Arterial Blood Carboxyhemoglobin 0.3 Arterial Blood Date Drawn 01/23/2017 4:12:24 PM Arterial Blood Methemoglobin 0 Arterial Blood pCO2 (Temp correct) 49.0 H Arterial Blood pH (Temp corrected) 7.274 *L Arterial Blood pO2 (Temp corrected) 138.5 H Blood Gas A-a O2 Differential 525.5 H Blood Gas Actual Respiration Rate 20 Blood Gas Critical Value Read Back DOV. HERMILO Blood Gas Low PEEP Setting 0 Blood Gas Modality VENT - AC Blood Gas Notified Time 01/23/2017 4:23:49 PM Blood Gas Notified Whom RT Blood Gas Respiration Rate 16.0 Blood Gas Specimen Source Blood arterial Blood Gas Temperature 37.0 Blood Gas Tidal Volume 450.0 FiO2 100.0 Oxyhemoglobin Percent 97.5 Total Hemoglobin 9.7 L Lactic Acid Level 2.4 H Thyroid Stimulating Hormone (TSH) 8.790 H Troponin I 0.095 Bedside Glucose 124 Test 01/24/17 05:21 Alanine Aminotransferase (ALT/SGPT) 84 H Albumin 2.6 L Albumin/Globulin Ratio 1.04 Alkaline Phosphatase 97 Anion Gap 12 Aspartate Amino Transf (AST/SGOT) 76 H Basophils # 0.0 Basophils % 0.5 Blood Urea Nitrogen 39 H Calcium Level 8.1 L Carbon Dioxide Level 23 Chloride Level 114 H Creatinine 1.05 H Direct Bilirubin 0.00 Eosinophils # 0.0 Eosinophils % 0.5 Globulin 2.50 Glucose Level 95 Hematocrit 24.3 L Hemoglobin 7.6 L Indirect Bilirubin 0.0 Lymphocytes # 0.6 L Lymphocytes % 15.2 Mean Corpuscular Hemoglobin 26.0 L Mean Corpuscular Hemoglobin Concent 31.3 L Mean Corpuscular Volume 83.2 Mean Platelet Volume 9.6 Monocytes # 0.2 L Monocytes % 4.2 Neutrophils # 3.2 Neutrophils % 79.4 H Nucleated Red Blood Cells # 0.0 Nucleated Red Blood Cells % 0.0 Platelet Count 107 L Potassium Level 4.8 Red Blood Count 2.92 L Red Cell Distribution Width 14.3 Sodium Level 144 Total Bilirubin 0.0 L Total Protein 5.1 #L White Blood Count 4.0 #L Medications Medications Current Medications Midazolam HCl 50 ml @ 1 mls/hr TITRATE IV Last administered on 01/24/17 06:00; Admin Dose 6 MLS/HR; Start 01/23/17 at 16:30 Norepinephrine (Levophed) 250 ml @ 1.875 mls/ hr TITRATE IV ; Start 01/23/17 at 17:30 Labetalol HCl 10 mg 10 mg Q10M PRN IV ELEVATED BLOOD PRESSURE; Start 01/23/17 at 22:00 Ceftriaxone Sodium (Rocephin) 50 ml @ 100 mls/hr Q24H IVPB ; Start 01/24/17 at 17:30 Enoxaparin Sodium 100 mg 100 mg Q24H SC Last administered on 01/24/17 00:29; Admin Dose 100 MG; Start 01/23/17 at 23:30 Sodium Chloride (NS) 1,000 ml @ 80 mls/hr [id number] IV Last administered on 23:45; Admin Dose 80 MLS/HR; Start 01/23/17 at 23:30 Pantoprazole (Protonix Iv) 40 mg DAILY@06 IV ; Start 01/25/17 at 06:00 MOOSE JARRELL Jan 24, 2017 14:33
--- NOTE | 2017-01-24 14:56 | PN ---
DATE: 01/24/2017 SUBJECTIVE DATA: The patient remains intubated on 100% FIO2. Blood pressure on the lower side. Bradycardic. OBJECTIVE DATA: VITAL SIGNS: Temperature 94.8, pulse rate 42, respiratory rate 19, blood pressure 90/28, oxygen saturation 100% on 100% FIO2 via mechanical ventilator. GENERAL: This is an obese female patient lying in bed, orally intubated, not in any apparent distress. HEENT: Head normocephalic and atraumatic. Eyes: Anicteric sclerae. Conjunctivae clear. ENT: Nasal septum is midline. Oral mucosa is dry, orally intubated. NECK: Short and obese. Unable to visualize any neck veins. CARDIAC: Regular cardiac irregularly irregular rhythm. Bradycardia. RESPIRATORY: Bilaterally diminished breath sounds. Orally intubated and mechanically ventilated. On AC mode ventilation. On 100% FIO2. ABDOMEN: Soft, nontender. Bowel sounds hypoactive in all 4 quadrants. GENITOURINARY: The patient has a Cadena catheter in place. EXTREMITIES: No cyanosis, no clubbing. Bilateral 1 to 2+ pedal edema. Pedal pulses are diminished. Right great toe erythema and edema. NEUROLOGIC: The patient is unresponsive. No spontaneous movements. Does not open eyes. LABORATORY AND DIAGNOSTIC DATA: WBC 4.0, hemoglobin 7.6, hematocrit 24.3, platelet count 107. Sodium 144, potassium 4.8, chloride 114, carbon dioxide 23 , anion gap 12, BUN 39, creatinine 1.5, glucose 95, calcium 8.1. AST 76, ALT 84 , alkaline phosphatase 97. ASSESSMENT AND PLAN: 1. Status post cardiopulmonary arrest. The patient is currently intubated and mechanically ventilated. Continue ventilator management as per pulmonary. The patient is a DNR. The patient's family to talk about further plan of care. 2. Possible underlying aspiration pneumonia. Continue antibiotics. 3. Atrial fibrillation. Rate controlled. Bradycardic. Monitor. 4. Normocytic anemia. We will monitor the hemoglobin and hematocrit closely. Will monitor the patient for any bleeding. 5. Respiratory acidosis. PCO2 of 49 with a pH of 7.274. Ventilator management as per pulmonary. 6. Fluid, electrolytes, and nutrition. Continue IV fluids. N.p.o. 7. Deep venous thrombosis prophylaxis with subcutaneous Lovenox. 8. Gastrointestinal prophylaxis. Proton pump inhibitors. PLAN: Continue ICU monitoring. The patient will remain a DNR. Further plan of care will be discussed with the patient's family. Case discussed with Dr. Espana. Critical care time: 35 minutes. NORMAN ESPANA MD, AM/NELI Conf#: [id number] DID#: [id number] MTDD
--- NOTE | 2017-01-24 15:55 | RADRPT ---
Echocardiogram Report Patient Name: ASHANTI NUÑEZ Gender: Female Date: 1930 Study Date: 24-Jan-2017 Supervisor [employer] Service: [facility] Location: -4 Ref. Physician: NORMAN WALTERS Quality: Technically Difficult Study Procedures: Transthoracic echocardiogram with complete 2D, M-Mode, and doppler examination. Indications: Evaluate Left Ventricular function. 2D/M Mode Doppler Measurement Value Normal Ranges Measurement Value Normal Ranges LVIDd 2D 3.9 3.5 - 5.6 cm AV Peak Bobby 1.1 m/sec LVIDs 2D 2.8 2.1 - 4.1 cm AV Peak PG 4.5 mmHg LVPWd 2D 1.1 0.6 - 1.1 cm AI Peak PG 7.8 mmHg IVSd 2D 1.1 0.6 - 1.1 cm AI Peak Bobby 1.4 m/sec AoR Diam 2D 2.3 2.0 - 3.7 cm AI PHT 506.4 msec EDV 2D 66.5 cm3 LVOT Peak Bobby 0.5 m/sec ESV 2D 22.4 cm3 LVOT Peak PG 1.1 mmHg MV E Peak Bobby 0.9 m/sec MV A Peak Bobby 0.4 m/sec MV E/A 2.3 MV Decel Time 209 msec MV Decel Vilas 4 MV E/A 2.3 TR Peak Bobby 2.6 m/sec TR Peak PG 27.0 mmHg Findings Left Ventricle: Normal left ventricular systolic function. Normal left ventricular cavity size. Left ventricular wall thickness upper limits of normal. Ejection fraction is visually estimated at 55 %. Tissue Doppler/Mitral Doppler indices are consistent with pseudonormalization with mildly elevated left atrial pressure (Stage II diastolic dysfunction). Right Ventricle: Not well visualized. Left Atrium: There is mild enlargement of left atrium. Right Atrium: The right atrium is normal in size. Mitral Valve: Mild mitral annular calcification. Trace mitral regurgitation. Aortic Valve: Aortic sclerosis without stenosis. Aortic cusps appear mildly calcified. Trace aortic valve regurgitation. Tricuspid Valve: Estimated peak PA systolic pressure 35 mmHg. There is mild tricuspid regurgitation. Pulmonic Valve: Pulmonic valve not well visualized. There is trace pulmonic regurgitation. Pericardium: There is an anterior echo free space consistent with epicardial fat pad. Aorta: Normal aortic root. IVC: Inferior vena cava with poor respiratory collapse, however, patient on ventilator. Conclusions Technically difficult study with poor endocardial visualization. Normal left ventricular systolic function. Normal left ventricular cavity size. Ejection fraction is visually estimated at 55 %. Grade II diastolic dysfunction. No significant valvular stenosis or regurgitation seen. Electronically Signed By: Juan C Parker 24-Jan-2017 15:55:09 -0800 Patient Name: ASHANTI NUÑEZ Study Date: 24-Jan-2017 [id number]
[2017-01-24] MEDS ORDERED: CEFTRIAXONE 2 GM/50 ML (PMX) 50 ML IVPB SCH (17:30)
[2017-01-24] MEDS ORDERED: LORAZEPAM 2 MG INJ IV ONE (18:00)
[2017-01-24 21:30] VITALS: TEMP 96.5
[2017-01-24] MEDS ORDERED: hydrALAzine 20 MG INJ IV ONE (22:30)
[2017-01-24] MEDS ORDERED: hydrALAzine 20 MG INJ ONE (22:33)
[2017-01-24 23:30] VITALS: RESP 16
[2017-01-25] VITALS (34 sets, daily range): BP systolic 47–122; BP diastolic 26–68; PULSE 72–113; RESP 13–20
[2017-01-25] MEDS: SOD CHLORIDE 0.9% 1,000 ML IV SCH (00:42)
[2017-01-25] MEDS ORDERED: SOD CHLORIDE 0.9% 500 ML IV ONE (03:30)
[2017-01-25] MEDS ORDERED: FUROSEMIDE 20 MG INJ IV ONE (05:00)
[2017-01-25 05:51] LABS: ADD SCAN DIFF NO
[2017-01-25 05:59] LABS: BASOPHILS % 0.2 % (0.0-2.0); EOSINOPHILS % 0.5 % (0.0-7.0); HEMATOCRIT 26.1 % (37.0-47.0); HEMOGLOBIN 8.3 g/dl (12.0-16.0); LYMPHOCYTES # 0.7 10^3/ul (0.8-2.9); MEAN CORPUSCULAR HEMOGLOBIN 26.5 pg (29.0-33.0); MEAN CORPUSCULAR HGB CONC 31.8 g/dl (32.0-37.0); MEAN CORPUSCULAR VOLUME 83.4 fl (82.0-101.0); MEAN PLATELET VOLUME 10.3 fl (7.4-10.4); MONOCYTE # 0.6 10^3/ul (0.3-0.9); MONOCYTES % 7.4 % (0.0-11.0); NEUTROPHIL # 6.6 10^3/ul (1.6-7.5); NEUTROPHILS % 82.3 % (39.0-77.0); PLATELET COUNT 178 10^3/UL (140-415); RED BLOOD COUNT 3.13 10^6/ul (4.20-5.40); RED CELL DISTRIBUTION WIDTH 15.3 % (11.5-14.5)
[2017-01-25] MEDS ORDERED: PANTOPRAZOLE 40 MG INJ IV SCH (06:00)
[2017-01-25] MEDS: MIDAZOLAM (DRIP) 50 mg/50 mL 50 ML IV SCH (06:10)
--- NOTE | 2017-01-25 06:15 | RADRPT ---
PROCEDURE: XR Chest. CLINICAL INDICATION: Pneumonia TECHNIQUE: Portable single view of the chest COMPARISON: 01/23 FINDINGS: Endotracheal tube remains in good position. Right internal jugular line remains in good position as well. There has been significant increase in opacity of the right hemithorax which may be a combin ation of increasing pleural effusion and underlying airspace disease or collapse. Cardiomegaly and ectatic and tortuous aorta is again seen. Pulmonary vascular congestion and interstitial edema of t he left lung is again seen. No large left effusion. Mediastinal shift to the right is accentuated by patient rotation but also suggests underlying right lung volume loss. Right shoulder fracture aga in seen. IMPRESSION: Significant development of right hemithorax opacity which may be due to a combination of right lung infiltrate or collapse and increasing right effusion. Mucus plugging should also be considered. RPTAT: [facility] Physician Javier Date Time Electronically viewed and signed by Kathy Patricia Physician on 01/25/2017 06:15 ANTOINETTE/
[2017-01-25 06:42] LABS: CHOL/HDL RATIO 2.3 RATIO; MAGNESIUM 2.3 mg/dl (1.7-2.5)
[2017-01-25 06:50] LABS: TROPONIN-I 0.123 ng/ml (0.00-0.12)
[2017-01-25 06:57] LABS: PHOSPHORUS 3.8 mg/dl (2.5-4.9)
[2017-01-25 07:08] LABS: ALBUMIN 2.5 g/dl (3.3-4.9)
[2017-01-25 07:09] LABS: POTASSIUM 5.4 mmol/L (3.5-5.1)
[2017-01-25 07:11] LABS: CREATININE 1.59 mg/dl (0.44-1.00)
[2017-01-25 07:12] LABS: CALCIUM 8.2 mg/dl (8.4-10.2)
[2017-01-25 08:29] LABS: AADO2 Arterial 151.4 mmHg (7.0-24.0); Allen Test ACCEPTAB; Arterial Base Excess -7.5 mmol/L (-3.0-3); Arterial COHb 0.3 % (0.0-3.0); Arterial Fraction of Oxyhgb 95.3 % (93.0-99.0); Arterial HCO3 17.8 mmol/L (22.0-26.0); Arterial MetHb 0.4 % (0.0-1.5); Arterial Total Hemglobin 8.9 g/dl (12.0-18.0); Blood Gas Low PEEP Setting 0 cmH2O; MODE VENT - AC
--- NOTE | 2017-01-25 09:19 | CONS ---
Date/Time of Note Date/Time of Note DATE: 01/25/17 TIME: 09:14 Assessment/Plan Assessment/Plan Additional Assessment/Plan Ventilator settings; AC of 16, tidal volume 500, PEEP of 5, 40% FiO2. ABG was reviewed from today showing pH of 7.32 CO2 of 35 PO2 of 93 O2 sat of 95%. Chest x-ray was reviewed from today which showed extensive infiltrative changes involving the right lung. Assessment recommendations; 1. Patient admitted with altered mental status to the ER and then had a cardiac arrest/respiratory failure. 2. Extensive right-sided pneumonia. 3. Hypotension requiring high-dose Levophed. 4. Slight worsening in renal function. 5. Advanced dementia. I did have a very detailed discussion with the patient's son at bedside, the patient's son expressed that the patient never wanted to be reintubated and she already has had a DNR/DNI status which apparently could not be communicated to the ambulance people when they brought her to the ER. Son wishes Patient with provision of comfort care measures and wants her to be extubated. I totally concur with the decision of the son and will order extubation with provision of morphine drip. Prognosis is dismal. Consultation Date/Type/Reason Admit Date/Time Jan 23, 2017 at 22:03 Initial Consult Date 01/24/17 Type of Consultation: Pulmonary/critical care 24 HR Interval Summary Free Text/Dictation Condition remains critical. Acquiring full ventilator support, patient also has been hypotensive requiring Levophed administration. General exam; elderly lady, orally intubated, sedated. Currently in no distress. Exam/Review of Systems Vital Signs Vitals Vital Signs Date Time Temp Pulse Resp B/P Pulse Ox O2 Delivery O2 Flow Rate FiO2 01/25/17 06:00 105 20 103/43 96 Mechanical Ventilator 01/25/17 05:23 40 01/25/17 04:00 96.6 Intake and Output 01/24/17 01/24/17 01/25/17 15:00 23:00 07:00 Intake Total 1000 ml 50 ml 723.50 ml Output Total 245 ml Balance 1000 ml 50 ml 478.50 ml Exam HEENT examination; supple neck, positive JVD. No lymphadenopathy. Midline trachea. Patient is edentulous. Has bilateral intraocular lens implants. Pupils are small bilaterally. Orally intubated. Chest examination; diminished breath sound bilaterally. S1-S2 audible, no murmurs. Regular rhythm. Abdomen examination; soft, nondistended. No organomegaly. Bowel sounds audible. Extremity exam; 1+ anasarca. RN CLINICAL COORDINATOR examination; patient is sedated. Results Result Diagram: 01/25/17 0410 01/25/17 0410 Results 24 hrs Laboratory Tests Test 01/24/17 23:17 01/25/17 04:10 01/25/17 05:15 01/25/17 08:00 Bedside Glucose 71 97 Alanine Aminotransferase (ALT/SGPT) 76 H Albumin 2.5 L Albumin/Globulin Ratio 1.00 Alkaline Phosphatase 81 Anion Gap 15 Aspartate Amino Transf (AST/SGOT) 65 H Basophils # 0.0 Basophils % 0.2 Blood Urea Nitrogen 44 H Calcium Level 8.2 L Carbon Dioxide Level 18 L Chloride Level 119 H Cholesterol Level 134 Cholesterol/HDL Ratio 2.3 Creatinine 1.59 H Direct Bilirubin 0.00 Eosinophils # 0.0 Eosinophils % 0.5 Globulin 2.50 Glucose Level 85 HDL Cholesterol 56 Hematocrit 26.1 L Hemoglobin 8.3 L Hemoglobin A1c 5.9 Indirect Bilirubin 0.0 LDL Cholesterol, Calculated 59 Lymphocytes # 0.7 L Lymphocytes % 9.0 L Magnesium Level 2.3 Mean Corpuscular Hemoglobin 26.5 L Mean Corpuscular Hemoglobin Concent 31.8 L Mean Corpuscular Volume 83.4 Mean Platelet Volume 10.3 Monocytes # 0.6 Monocytes % 7.4 Neutrophils # 6.6 Neutrophils % 82.3 H Nucleated Red Blood Cells # 0.0 Nucleated Red Blood Cells % 0.0 Phosphorus Level 3.8 Platelet Count 178 # Potassium Level 5.4 H Red Blood Count 3.13 L Red Cell Distribution Width 15.3 H Sodium Level 147 H Total Bilirubin 0.0 L Total Protein 5.0 L Triglycerides Level 93 Troponin I 0.123 *H White Blood Count 8.0 # Arterial Blood HCO3 17.8 L Arterial Blood Base Excess -7.5 L Arterial Blood Oxygen Saturation 96.0 Dominick Test ACCEPTAB Arterial Blood Gas Puncture Site Right Radial Arterial Blood Carboxyhemoglobin 0.3 Arterial Blood Date Drawn 01/25/2017 8:04:36 AM Arterial Blood Methemoglobin 0.4 Arterial Blood pCO2 (Temp correct) 35.0 Arterial Blood pH (Temp corrected) 7.323 L Arterial Blood pO2 (Temp corrected) 93.6 H Blood Gas A-a O2 Differential 151.4 H Blood Gas Actual Respiration Rate 16 Blood Gas Low PEEP Setting 0 Blood Gas Modality VENT - AC Blood Gas Notified Time 01/25/2017 8:29:19 AM Blood Gas Notified Whom JLD Blood Gas Respiration Rate 16.0 Blood Gas Specimen Source Blood arterial Blood Gas Temperature 37.0 Blood Gas Tidal Volume 500.0 FiO2 40.0 Oxyhemoglobin Percent 95.3 Total Hemoglobin 8.9 L Medications Medications Current Medications Midazolam HCl 50 ml @ 1 mls/hr TITRATE IV Last administered on 01/25/17 06:10; Admin Dose 8 MLS/HR; Start 01/23/17 at 16:30 Norepinephrine (Levophed) 250 ml @ 1.875 mls/ hr TITRATE IV Last administered on 01/25/17 00:23; Admin Dose 3.75 MLS/HR; Start 01/23/17 at 17:30 Labetalol HCl 10 mg 10 mg Q10M PRN IV ELEVATED BLOOD PRESSURE Last administered on 01/24/17 21:58; Admin Dose 10 MG; Start 01/23/17 at 22:00 Ceftriaxone Sodium (Rocephin) 50 ml @ 100 mls/hr Q24H IVPB Last administered on 01/24/17 19:52; Admin Dose 100 MLS/HR; Start 01/24/17 at 17:30 Enoxaparin Sodium 100 mg 100 mg Q24H SC Last administered on 01/24/17 23:19; Admin Dose 100 MG; Start 01/23/17 at 23:30 Sodium Chloride (NS) 1,000 ml @ 80 mls/hr [id number] IV Last administered on 00:42; Admin Dose 80 MLS/HR; Start 01/23/17 at 23:30 Pantoprazole (Protonix Iv) 40 mg DAILY@06 IV Last administered on 01/25/17 05: 14; Admin Dose 40 MG; Start 01/25/17 at 06:00 MOOSE JARRELL 9, 2017 09:19
[2017-01-25] MEDS ORDERED: morphine 2 MG INJ IV PRN (09:30)
--- NOTE | 2017-01-25 11:33 | EN ---
Date/Time of Note Date/Time of Note DATE: 01/25/17 TIME: 11:30 Event Note Medicine Medicine Event Note Expiration Note The patient has no signs of life. No audible breath sounds or audible heart sounds. No pulses palpable. No spontaneous respirations. Pupils are fixed and dilated. No response to painful stimuli. developer programmer showing asystole. The patient was declared on 01/25/2017 at 11:28 AM. Case discussed with Dr. Espana. NORMAN WALTERS NP Jan 25, 2017 11:32
--- NOTE | 2017-01-25 12:58 | DS ---
DATE OF ADMISSION: 01/23/2017 DATE OF DISCHARGE: 01/25/2017 SUMMARY TIME OF EXPIRATION: 11:28 a.m. PRIMARY CAUSE OF : Cardiopulmonary arrest. SECONDARY CAUSES OF : 1. Aspiration pneumonia dated 01/23/2017. 2. Sepsis with underlying septic shock dated 01/23/2017. 3. Acute kidney injury dated 01/23/2017. 4. Hyperkalemia dated 01/25/2017. FINAL DIAGNOSES: 1. Status post cardiopulmonary arrest. 2. Aspiration pneumonia. 3. Atrial fibrillation. 4. Normocytic anemia. 5. Dementia. 6. Acute kidney injury (presumed). 7. Atrial fibrillation. CONSULTATIONS: Dr. Aki Brown, pulmonary. HOSPITAL COURSE: This is an 86-year-old female with a known history of dementia and atrial fibrilla tion who was brought from home due to being found with altered mental status by the caregiver approx imately 1 hour prior to arrival. The patient's workup that was done in the emergency room showed a right lower lobe pneumonia. The patient was given IV fluids and antibiotics and cultures were sent. EKG was showing atrial fibrillation. While the patient was in the emergency room, she had sudden unresponsiveness and was found to be pulseless and asystolic on the monitor. Hence, CPR was initiat ed and successful was achieved and the patient was intubated in the emergency room for airway protection. Hypothermia protocol was not undertaken due to the patient regaining some purposeful mo vement after . The patient actually had a DNR/DNI advanced directive, but the patient was cod ed and intubated in the ER, though knowing this advanced directive. The patient was later transferre d to the ICU for further care. On 01/25/2017, an extensive discussion with the patient's son and the patient was put on comfort mayi sures and the patient was compassionately extubated. At 12:28 a.m. on 01/25/2017, the patient was n oticed to have asystole on the monitor. The patient had no clinical signs of life. The patient had fixed and dilated pupils. There were no audible breath or heart sounds. There were no palpable pu lses. There was no movement to painful stimuli. The patient was declared on 01/25/2017 at 11:28 a.m. The patient's son was at the bedside. The son was given enough time to spend with the p atient. PERTINENT LABORATORY AND DIAGNOSTIC DATA: 1. 2D echocardiogram. Ejection fraction of 55%. Grade II diastolic dysfunction. Estimated peak P A systolic pressure of 35 mmHg. 2. Latest chest x-ray on 01/25/2017. Significant for a right hemithorax opacity, which was due to a combination of right lung infiltrate or collapse and increasing right effusion. 3. Brain CT scan. No acute intracranial findings. 4. Latest CBC: WBC 8.0, hemoglobin 8.3, hematocrit 26.1, platelet count of 173. 5. Latest BMP: Sodium 147, potassium 5.4, chloride 190, carbon dioxide 18, anion gap 15, BUN 44, cr eatinine 1.59, glucose 85. 6. Fasting lipid panel: Triglycerides 73, total cholesterol 134, LDL 59, HDL 56. 7. Hemoglobin A1c 5.9. At this time, I would like to thank all the consultants for seeing the patient and providing clinica l recommendations. The case and management of this patient was fully discussed with Dr. Mata. Dictated By: NORMAN WALTERS STICKER MACHINE OPERATOR for FLORY MATA MD, AM/NTS Conf#: [id number] DID#: [id number]
--- NOTE | 2017-01-25 17:34 | DES ---
DATE OF ADMISSION: 01/23/2017 DATE OF EXPIRATION: 01/25/2017 TIME OF EXPIRATION: 11:28 a.m. PRIMARY CAUSE OF : Cardiopulmonary arrest. SECONDARY CAUSES OF : 1. Aspiration pneumonia dated 01/23/2017. 2. Sepsis with underlying septic shock dated 01/23/2017. 3. Acute kidney injury dated 01/23/2017. 4. Hyperkalemia dated 01/25/2017. FINAL DIAGNOSES: 1. Status post cardiopulmonary arrest. 2. Aspiration pneumonia. 3. Atrial fibrillation. 4. Normocytic anemia. 5. Dementia. 6. Acute kidney injury (presumed). CONSULTATIONS: Dr. Aki Brown, pulmonary. HOSPITAL COURSE: This is an 86-year-old female with a known history of dementia and atrial fibrillation who was brought from home due to being found with altered mental status by the caregiver approximately 1 hour prior to arrival. The patient's workup that was done in the emergency room showed a right lower lobe pneumonia. The patient was given IV fluids and antibiotics and cultures were sent. EKG was showing atrial fibrillation. While the patient was in the emergency room, she had sudden unresponsiveness and was found to be pulseless and asystole on the monitor. Hence, CPR was initiated and successful ROSC was achieved and the patient was intubated in the emergency room for airway protection. Hypothermia protocol was not undertaken due to the patient regaining some purposeful movement after attaining ROSC. The patient actually had a DNR/DNI advanced directive, but the patient was coded and intubated in the ER, without knowing this advanced directive. The patient was later transferred to the ICU for further care. On 01/25/2017, after an extensive discussion with the patient's son, the patient was put on comfort measures and the patient was compassionately extubated. At 11:28 a.m. on 01/25/2017, the patient was noticed to have asystole on the monitor. The patient had no clinical signs of life. The patient had fixed and dilated pupils. There were no audible breath or heart sounds. There were no palpable pulses. There was no movement to painful stimuli. The patient was declared on 01/25/2017 at 11:28 a.m. The patient's son was at the bedside. The son was given enough time to spend with the patient. PERTINENT LABORATORY AND DIAGNOSTIC DATA: 1. 2D echocardiogram. Ejection fraction of 55%. Grade II diastolic dysfunction. Estimated peak PA systolic pressure of 35 mmHg. 2. Latest chest x-ray on 01/25/2017. Significant for a right hemithorax opacity, which was due to a combination of right lung infiltrate or collapse and increasing right effusion. 3. Brain CT scan. No acute intracranial findings. 4. Latest CBC: WBC 8.0, hemoglobin 8.3, hematocrit 26.1, platelet count of 173. 5. Latest BMP: Sodium 147, potassium 5.4, chloride 190, carbon dioxide 18, anion gap 15, BUN 44, creatinine 1.59, glucose 85. 6. Fasting lipid panel: Triglycerides 73, total cholesterol 134, LDL 59, HDL 56. 7. Hemoglobin A1c 5.9. At this time, I would like to thank all the consultants for seeing the patient and providing clinical recommendations. The case and management of this patient was fully discussed with Dr. Mata. NORMAN MATA MD, AM/NELI Conf#: [id number] DID#: [id number] [id number]
== END 2017-01-25 12:28 | disposition expired | DRG 871 ==
LOC: E/R 11:59 → ICU 22:03
PROVIDERS: ADMIT Family Medicine; ATTEND Family Medicine
PROC: 5A1945Z Respiratory Ventilation, 24-96 Consecutive Hours (ICD-10-PCS; principal; 2017-01-23)
PROC: 5A12012 Performance of Cardiac Output, Single, Manual (ICD-10-PCS; 2017-01-23)
PROC: 0BH17EZ Insertion of Endotracheal Airway into Trachea, Via Natural or Artificial Opening (ICD-10-PCS; 2017-01-23)
PROC: 05HM33Z Insertion of Infusion Device into Right Internal Jugular Vein, Percutaneous Approach (ICD-10-PCS; 2017-01-23)
PROC: B543ZZA Ultrasonography of Right Jugular Veins, Guidance (ICD-10-PCS; 2017-01-23)
DX: A41.9 Sepsis, unspecified organism (principal); J69.0 Pneumonitis due to inhalation of food and vomit; I46.9 Cardiac arrest, cause unspecified; R65.21 Severe sepsis with septic shock; N17.9 Acute kidney failure, unspecified; E87.2 Acidosis; I95.9 Hypotension, unspecified; F03.90 Unspecified dementia, unspecified severity, without behavioral disturbance, psychotic disturbance, mood disturbance, and anxiety; E87.5 Hyperkalemia; I48.91 Unspecified atrial fibrillation; R41.82 Altered mental status, unspecified; E86.0 Dehydration; Z51.5 Encounter for palliative care; Z66 Do not resuscitate; I10 Essential (primary) hypertension; D64.9 Anemia, unspecified
CPT/HCPCS: 36600; 70450; 71010; 80053; 80061; 81003; 82803; 82962; 83036; 83605; 83735; 84100; 84443; 84484; 85025; 85610; 85730; 87040; 87081; 87086; 93005; 93306; 94002; 94003; 94770; J1940; C9113; J0171; J0360; J0456; J0696; J1650; J2060; J2270; J3010; J3475; J7030; J7040; J7050